=== PATIENT | male | born 1965 | race African-American/Black ===

== ENCOUNTER 2017-06-03 14:12 | Emergency (ER) | payer SELFPAY ==
[2017-06-03 14:18] VITALS: BP 124/86
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
== END 2017-06-03 14:33 | disposition home or self-care (01) ==
LOC: ER 14:12
DX: M25.561 Pain in right knee (principal); F17.210 Nicotine dependence, cigarettes, uncomplicated
CPT/HCPCS: 99283

== ENCOUNTER 2017-06-09 08:57 | Emergency (ER) | payer SELFPAY ==
--- NOTE | 2017-06-09 09:50 | ER Document Report ---
ED Extremity Problem, Lower - General Chief Complaint: Knee Pain Stated Complaint: FALL/RIGHT KNEE PAIN Time Seen by Provider: 06/09/17 09:27 TRAVEL OUTSIDE OF THE [place] IN LAST 30 DAYS: No - HPI Notes: 51-year-old male presents with right knee pain after tripping and falling at the hotel 2 days ago. He has moderate severe pain to the right knee with swelling. He uses no anticoagulants. Denies any other injury otherwise. No distal numbness or tingling. No hip pain. He does have some prior knee problems that are nonspecific and is not followed anywhere. - Related Data Allergies/Adverse Reactions: No Known Allergies Allergy (Verified 06/09/17 09:07) Past Medical History - Social History Smoking Status: Current Every Day Smoker Chew tobacco use (# tins/day): No Frequency of alcohol use: None Drug Abuse: Marijuana Family History: None Patient has suicidal ideation: No Patient has homicidal ideation: No Renal/ Medical History: Denies: Hx Peritoneal Dialysis Surgical Hx: Negative - Immunizations Hx Diphtheria, Pertussis, Tetanus Vaccination: Yes Review of Systems - Review of Systems -: Yes All other systems reviewed and negative Physical Exam - Vital signs Vitals: Temp Pulse Resp BP Pulse Ox 97.7 F 80 16 129/84 H 99 06/09/17 09:08 06/09/17 09:08 06/09/17 09:08 06/09/17 09:08 06/09/17 09:08 - Notes Notes: PHYSICAL EXAMINATION: GENERAL: VS as per nursing doc. Well-appearing, well-nourished no acute distress. HEAD: Atraumatic, normocephalic. EYES: Anicteric without conjunctival injection. ENT: Normal to inspection, moist mucous membranes. NECK: Supple with grossly normal range of motion. LUNGS: Normal respiratory excursion without distress. Clear to auscultation HEART: Regular rate and rhythm. Cap refill < 3 seconds. ABDOMEN: Normal to inspection. EXTREMITIES: No edema. Patient has a large right knee effusion with ballottement. There is no redness and no excessive warmth. Tender diffusely along the joint line particularly at the infrapatellar region. He does have painful but normal extension with his foot off the bed. There appears to be some laxity with ACL testing but there are ligamentous endpoints noted. Neurovascularly intact distally. NEUROLOGICAL: Grossly normal with symmetrical movements. PSYCH: Normal mood, normal affect. SKIN: Warm, dry. Course - Re-evaluation Re-evalutation: 06/09/17 12:08 Reviewed findings with the patient. He appears to have an old tibial plateau injury. I suspect he has ligamentous injury at this point so he will require orthopedic follow-up which I have given him. He will ice and elevate and use crutches and a knee immobilizer to stay off. - Vital Signs Vital signs: Temp Pulse Resp BP Pulse Ox 97.7 F 80 16 129/84 H 99 06/09/17 09:08 06/09/17 09:08 06/09/17 09:08 06/09/17 09:08 06/09/17 09:08 - Diagnostic Test Radiology reviewed: Image reviewed - Old tibial plateau injury. Nothing acute on CT except for large effusion., Reports reviewed Discharge - Discharge Clinical Impression: Internal derangement of knee, acute Condition: Good Disposition: HOME, SELF-CARE Instructions: Use of Crutches ([facility]), Ice & Elevation ([facility]), Suspected Internal Knee Injury ([facility]), Knee Immobilizing Splint ([facility]), Oral Narcotic Medication ([facility] ) Prescriptions: Acetaminophen with Codeine [Tylenol #3 Tablet] 1 - 2 each PO Q6HP PRN #14 tablet PRN Reason: For Pain Acetaminophen with Codeine [Tylenol #3 Tablet] 1 - 2 each PO Q6HP PRN #14 tablet PRN Reason: For Pain Tramadol HCl [Ultram] 50 mg PO Q6HP PRN #14 tablet PRN Reason: Referrals: KORIN KEN MD [ACTIVE STAFF] - Follow up in 3-5 days
[2017-06-09] MEDS ORDERED: IBUPROFEN 600 MG TABLET PO ONE (09:54)
--- NOTE | 2017-06-09 11:02 | RADIOLOGY REPORT (SQ) ---
EXAM DESCRIPTION: KNEE RIGHT 3 VIEWS COMPLETED DATE/TIME: 06/09/2017 10:16 am REASON FOR STUDY: Trauma with pain COMPARISON: None. NUMBER OF VIEWS: Four views. TECHNIQUE: AP, lateral, and both oblique radiographic images acquired of the right knee. LIMITATIONS: None. FINDINGS: MINERALIZATION: Normal. BONES: Deformity of the lateral tibial plateau and adjacent fibular head. May be old based on radiog raphic appearance. No previous studies. Recommend clinical correlation. No acute fracture line kemal ntified. JOINT: Increasing suprapatellar density on the lateral consists with the joint effusion. Small calci fic density projected over the medial aspect of the lateral joint compartment that may represent a lo ose body. SOFT TISSUES: No soft tissue swelling. No radio-opaque foreign body. OTHER: No other significant finding. IMPRESSION: Joint effusion. Deformity and depression of the lateral tibial plateau and adjacent fib ular head that may be old based on radiographic appearance. Recommend clinical correlation. No acut e fracture line identified. CT recommended if suspicious of an occult injury particular at the level of old injury. TECHNICAL DOCUMENTATION: JOB ID: [id number] [employer]- All Rights Reserved
--- NOTE | 2017-06-09 11:57 | RADIOLOGY REPORT (SQ) ---
EXAM DESCRIPTION: CT RT LOWER EXTREMITY WITHOUT COMPLETED DATE/TIME: 06/09/2017 11:19 am REASON FOR STUDY: Eval tibial plateau COMPARISON: X-ray dated 06/09/2017. TECHNIQUE: Axial imaging performed through the right knee with reformatted coronal and sagittal imag ing windowed for bone and soft tissues. Images saved to PACS. 3D IMAGING: Were 3D images as MIP, SSD, or volume rendering performed at the work station? No. All CT scanners at this facility use dose modulation, iterative reconstruction, and/or weight based d osing when appropriate to reduce radiation dose to as low as reasonably achievable (ALARA). [facility]: Dose Right [facility]: CareDose [facility]: Dose Right [facility]: Teradose 4D [facility]: [employer] LIMITATIONS: None. RADIATION DOSE: Up-to-date CT equipment and radiation dose reduction techniques were employed. CTDIv ol: 4.1 mGy. DLP: 101 mGy-cm. mGy. FINDINGS: SOFT TISSUES: Large joint effusion. BONES: No acute fracture visualized. Deformity of the tibial plateau secondary to old trauma. Old d eformity of the fibular head with degenerative changes at the articulation with the proximal tibia. Medial joint space narrowing. MINERALIZATION: Normal. OTHER: No other significant finding. IMPRESSION: CHRONIC DEGENERATIVE CHANGES. OLD POSTTRAUMATIC CHANGES OF THE TIBIAL PLATEAU. NO ACUT E BONY FINDINGS. LARGE JOINT EFFUSION. TECHNICAL DOCUMENTATION: JOB ID: [id number] Quality ID # [id number]: Final reports with documentation of one or more dose reduction techniques (e.g., Au tomated exposure control, adjustment of the mA and/or kV according to patient size, use of iterative reconstruction technique) 2010 [email or web address]- All Rights Reserved
[2017-06-09 12:27] VITALS: BP 129/88
== END 2017-06-09 12:27 | disposition home or self-care (01) ==
LOC: ER 08:57
DX: M23.91 Unspecified internal derangement of right knee (principal); W01.0XXA Fall on same level from slipping, tripping and stumbling without subsequent striking against object, initial encounter; F17.200 Nicotine dependence, unspecified, uncomplicated
CPT/HCPCS: 99284; 73562; 73700; L1830

== ENCOUNTER 2017-11-21 03:14 | Emergency (ER) | payer SELFPAY ==
[2017-11-21 03:21] VITALS: BP 120/69
[2017-11-21] MEDS ORDERED: DIPH/PERTUSS(ACELL)/TETANUS VAC/PF 0.5 ML SYR (>=10YO) IM ONE (03:30)
[2017-11-21] MEDS ORDERED: LIDOCAINE 1% INJ-PF (10 MG/ML) 30 ML SDV INJ ONE (03:31)
--- NOTE | 2017-11-21 03:36 | ER Document Report ---
HPI - HPI Pain Level: 3 Notes: Patient is a 52-year-old male who presents to the ED complaining of a laceration to his left anterior index finger prior to arrival. Patient thinks it may have been glass, but is not sure exactly what he cut his finger on. Patient states that he has been drinking some alcohol tonight as well. He is not sure of his last tetanus. Patient's son brought him to the emergency department and will be picking him up. Patient states that he is still able to move his finger without any difficulties, but cannot stop the bleeding. He has no other concerns or complaints at this time. Denies any drug allergies to antibiotics. Patient has a h/o of HTN, but denies any other significant past medical history. No blood thinners. Denies any headache, fever, head injury, neck pain, changes in vision/speech/mentation/hearing, URI, sore throat, chest pain, palpitations, syncope, cough, shortness of breath, wheeze, dyspnea, abdominal pain, nausea/vomiting/diarrhea, urinary retention, dysuria, hematuria , numbness/tingling, muscle paralysis/weakness, or rash. - ROS Systems Reviewed and Negative: Yes All other systems reviewed and negative Past Medical History - Social History Smoking Status: Current Every Day Smoker Family History: None Renal/ Medical History: Denies: Hx Peritoneal Dialysis - Immunizations Hx Diphtheria, Pertussis, Tetanus Vaccination: Yes Vertical Provider Document - CONSTITUTIONAL Agree With Documented VS: Yes Notes: PHYSICAL EXAMINATION: GENERAL: Well-appearing, well-nourished and in no acute distress. LUNGS: Breath sounds clear to auscultation bilaterally and equal. No wheezes rales or rhonchi. HEART: Regular rate and rhythm without murmurs, rubs, gallops. Musculoskeletal: Left index finger: FROM to passive/active. Strength 5+/5. N/V intact distal. No obvious foreign body. Extremities: No cyanosis, clubbing, or edema b/l. Peripheral pulses 2+. Capillary refill less than 3 seconds. NEUROLOGICAL: Normal speech, normal gait. Normal sensory, motor exams PSYCH: Normal mood, normal affect. SKIN: left index finger: superficial irregular 2.5cm laceration noted to the anterior prox digit. - INFECTION CONTROL TRAVEL OUTSIDE OF THE [place] IN LAST 30 DAYS: No - RESPIRATORY O2 Sat by Pulse Oximetry: 97 Course - Re-evaluation Re-evalutation: 11/21/17 04:15 Patient is an afebrile, well-hydrated, 50-year-old male who presents to the ED with finger laceration to the left index. Vitals are stable. PE is otherwise unremarkable for any neurovascular compromise, obvious tendon/ligament rupture, obvious fracture/dislocation, obvious retained foreign body. X-ray was unremarkable for any acute pathology. Pt eloped after his XR. Basic wound dressing was applied by the nurse for his XR, but wound had not yet been thoroughly irrigated/cleansed prior to elopement. Tdap could not be given as pt eloped nor lac repair. Pt did not get his antibiotic either due to eloping. - Vital Signs Vital signs: Temp Pulse Resp BP Pulse Ox 98.4 F 90 18 120/69 97 11/21/17 03:19 11/21/17 03:19 11/21/17 03:19 11/21/17 03:19 11/21/17 03:19 Discharge - Discharge Clinical Impression: Finger laceration Qualifiers: Encounter type: initial encounter Finger: index finger Damage to nail status: without damage Foreign body presence: without foreign body Laterality: left Qualified Code(s): S61.211A - Laceration without foreign body of left index finger without damage to nail, initial encounter Condition: Stable Disposition: ELOPED Prescriptions: Cephalexin Monohydrate [Keflex 500 mg Capsule] 500 mg PO TID #30 capsule Referrals: [facility] [Provider Group] - Follow up as needed
--- NOTE | 2017-11-21 04:13 | RADIOLOGY REPORT (SQ) ---
EXAM DESCRIPTION: HAND LEFT 3 VIEWS CLINICAL HISTORY: 52 years, Male, left antior 2nd digit laceration COMPARISON: None. NUMBER OF VIEWS: 3 Findings: Fusion and deformity at the left second proximal interphalangeal joint consistent with history of prior injury. Mild swelling/laceration of the left second digit. No radiopaque foreign body. Bones, joints, and soft tissues of the left hand appear otherwise intact. IMPRESSION: Swelling.
== END 2017-11-21 03:50 | disposition left against medical advice (07) ==
LOC: ER 03:14
DX: S61.211A Laceration without foreign body of left index finger without damage to nail, initial encounter (principal); W45.8XXA Other foreign body or object entering through skin, initial encounter; I10 Essential (primary) hypertension; F17.200 Nicotine dependence, unspecified, uncomplicated; Z53.20 Procedure and treatment not carried out because of patient's decision for unspecified reasons
CPT/HCPCS: 99281

== ENCOUNTER 2017-11-21 04:56 | Emergency (ER) | payer SELFPAY ==
[2017-11-21] MEDS ORDERED: DIPH/PERTUSS(ACELL)/TETANUS VAC/PF 0.5 ML SYR (>=10YO) IM ONE (05:35)
[2017-11-21] MEDS ORDERED: LIDOCAINE 1% INJ-PF (10 MG/ML) 30 ML SDV INJ ONE (05:36)
--- NOTE | 2017-11-21 05:37 | ER Document Report ---
HPI - HPI Pain Level: 3 Notes: Patient is a 52-year-old male who presents to the ED complaining of a laceration to his left anterior index finger prior to arrival. Patient thinks it may have been glass, but is not sure exactly what he cut his finger on. Patient states that he has been drinking some alcohol tonight as well. He is not sure of his last tetanus. Patient's son brought him to the emergency department and will be picking him up. Patient states that he is still able to move his finger without any difficulties, but cannot stop the bleeding. He has no other concerns or complaints at this time. Denies any drug allergies to antibiotics. Patient has a h/o of HTN, but denies any other significant past medical history. No blood thinners. Denies any headache, fever, head injury, neck pain, changes in vision/speech/mentation/hearing, URI, sore throat, chest pain, palpitations, syncope, cough, shortness of breath, wheeze, dyspnea, abdominal pain, nausea/vomiting/diarrhea, urinary retention, dysuria, hematuria , numbness/tingling, muscle paralysis/weakness, or rash. Pt eloped about 1 hour ago and has returned. See prev note as well. - ROS Systems Reviewed and Negative: Yes All other systems reviewed and negative Past Medical History - Social History Smoking Status: Unknown if Ever Smoked Family History: None Patient has suicidal ideation: No Patient has homicidal ideation: No - Past Medical History Cardiac Medical History: Reports: Hx Hypertension Renal/ Medical History: Denies: Hx Peritoneal Dialysis - Immunizations Hx Diphtheria, Pertussis, Tetanus Vaccination: Yes Vertical Provider Document - CONSTITUTIONAL Agree With Documented VS: Yes Notes: PHYSICAL EXAMINATION: GENERAL: Well-appearing, well-nourished and in no acute distress. LUNGS: Breath sounds clear to auscultation bilaterally and equal. No wheezes rales or rhonchi. HEART: Regular rate and rhythm without murmurs, rubs, gallops. Musculoskeletal: Left index finger: FROM to passive/active. Strength 5+/5. N/V intact distal. No obvious foreign body. Extremities: No cyanosis, clubbing, or edema b/l. Peripheral pulses 2+. Capillary refill less than 3 seconds. NEUROLOGICAL: Normal speech, normal gait. Normal sensory, motor exams PSYCH: Normal mood, normal affect. SKIN: left index finger: superficial irregular 2.5cm laceration noted to the anterior prox digit. - INFECTION CONTROL TRAVEL OUTSIDE OF THE [place] IN LAST 30 DAYS: No Course - Re-evaluation Re-evalutation: 11/21/17 06:35 Patient is an afebrile, well-hydrated, 50-year-old male who presents to the ED with finger laceration to the left index. Vitals are stable. PE is otherwise unremarkable for any neurovascular compromise, obvious tendon/ligament rupture, obvious fracture/dislocation, obvious retained foreign body. X-ray was unremarkable for any acute pathology. Wound was thoroughly irrigated and cleansed. Wound edges were approximated appropriately utilizing 7 simple interrupted sutures. Wound dressing was placed in a splint placed as well. Wound instructions reviewed. Patient tolerated procedure well without any complications. Tdap given today. I will send him home with a prescription for Keflex as prophylaxis. Recheck with your PCM in 2-3 days. Return to the ED with any worsening/concerning symptoms otherwise as reviewed in discharge. Patient is in agreement. Procedures - Laceration/Wound Repair Left 2nd digit Time completed: 06:30 Wound length (cm): 2.5 Wound's Depth, Shape: Superficial, Irregular Laceration pre-procedure: Sterile PPE donned, Sterile drapes applied, Other - chlorhexadine Anesthetic type: 1% Lidocaine Volume Anesthetic (mLs): 10 Wound explored: Clean, No foreign body removed Irrigated w/ Saline (mLs): 90 Wound Debrided: Minimal Wound Repaired With: Sutures Suture Size/Type: 5:0, Nylon Number of Sutures: 7 Layer Closure?: No Post-procedure wound care: Sterile dressing applied, Splint applied Post-procedure NV exam normal: Yes Complications: No Discharge - Discharge Clinical Impression: Finger laceration Qualifiers: Encounter type: initial encounter Finger: index finger Damage to nail status: without damage Foreign body presence: without foreign body Laterality: left Qualified Code(s): S61.211A - Laceration without foreign body of left index finger without damage to nail, initial encounter Condition: Stable Disposition: HOME, SELF-CARE Instructions: Antibiotic Ointment Protection ([facility]), Laceration Care ([facility]), Prophylactic Antibiotic ([facility]), Soap Cleansing ([facility]), Tetanus Immunization Given ([facility]) Additional Instructions: Do not shower or bathe for 24 hours. After 24 hours you may shower but no submersion of the wound under water. Keep the original dressing on the wound for 24 hours unless the drainage soaks through. Change the dressing daily thereafter and keep the knots of the suture material clean from any dried discharge. You may leave the wound open to the air once there is no more discharge. Return to the ED and/or your PCM in 2-3 days for a recheck. Monitor for any signs of worsening pain or redness, purulent drainage, streaks, and/or fever. Return to the ED if noticing any of the above symptoms or as needed. Take medications as directed. Your sutures will need to be removed in 10 days. Prescriptions: Cephalexin Monohydrate [Keflex 500 mg Capsule] 500 mg PO TID #30 capsule Forms: Smoking Cessation Education Referrals: [facility] [Provider Group] - Follow up as needed
[2017-11-21 05:48] VITALS: BP 127/92
== END 2017-11-21 06:45 | disposition home or self-care (01) ==
LOC: ER 04:56
DX: S61.211A Laceration without foreign body of left index finger without damage to nail, initial encounter (principal); W45.8XXA Other foreign body or object entering through skin, initial encounter; I10 Essential (primary) hypertension
CPT/HCPCS: 99283; 90471; 90715; 12001; J3490

== ENCOUNTER 2020-08-15 08:18 | Emergency (ER) | payer SELFPAY ==
[2020-08-15 08:25] VITALS: BP 121/82
[2020-08-15] MEDS ORDERED: OXYCODONE-ACETAMINOPHEN 5-325 MG TABLET PO ONE (09:37)
[2020-08-15] MEDS ORDERED: ONDANSETRON 4 MG TAB.RAPDIS PO ONE (09:37)
--- NOTE | 2020-08-15 09:45 | ER Document Report ---
Entered by WENDI SERRANO SCRIBE 08/15/20 0918 Acting as scribe for:COLE STUBBS MD ED Extremity Problem, Lower - General Stated Complaint: FALL/ RIGHT FOOT/ANKLE PAIN Time Seen by Provider: 08/15/20 09:15 Mode of Arrival: Ambulatory Information source: Patient Notes: This 55 year old male patient presents to the ED today for evaluation of right ankle pain that started after his leg got tangled in a tree that fell down while he was cutting trees yesterday. Patient states that that pain was not as bad initially, but became worse over time. He notes icing his ankle last night with mild relief, but reports the pain got worse when he moved his ankle. TRAVEL OUTSIDE OF THE [place] IN LAST 30 DAYS: No - Related Data Allergies/Adverse Reactions: codeine Allergy (Verified 11/21/17 06:17) Past Medical History - General Information source: Patient, [facility] Records - Social History Smoking Status: Current Every Day Smoker Cigarette use (# per day): Yes - 0.5 ppd Chew tobacco use (# tins/day): No Smoking Education Provided: No Frequency of alcohol use: Occasional Drug Abuse: Marijuana Lives with: Spouse/Significant other Family History: Reviewed & Not Pertinent Patient has suicidal ideation: No Patient has homicidal ideation: No - Past Medical History Cardiac Medical History: Reports: Hx Hypertension Past Surgical History: Reports: None - Immunizations Hx Diphtheria, Pertussis, Tetanus Vaccination: Yes Review of Systems - Review of Systems Constitutional: No symptoms reported EENT: No symptoms reported Cardiovascular: No symptoms reported Respiratory: No symptoms reported Gastrointestinal: No symptoms reported Genitourinary: No symptoms reported Male Genitourinary: No symptoms reported Musculoskeletal: See HPI, Joint pain Skin: No symptoms reported Hematologic/Lymphatic: No symptoms reported Neurological/Psychological: No symptoms reported -: Yes All other systems reviewed and negative Physical Exam - Vital signs Vitals: Temp Pulse Resp BP Pulse Ox 98.1 F 93 16 121/82 98 08/15/20 08:25 08/15/20 08:25 08/15/20 08:25 08/15/20 08:25 08/15/20 08:25 - General General appearance: Appears well, Alert In distress: None - HEENT Head: Normocephalic, Atraumatic Eyes: Normal Pupils: PERRL - Respiratory Respiratory status: No respiratory distress Chest status: Nontender Breath sounds: Normal Chest palpation: Normal - Cardiovascular Rhythm: Regular Heart sounds: Normal auscultation Murmur: No Friction rub: No Gallop: None auscultated - Abdominal Inspection: Normal Distension: No distension Bowel sounds: Normal Tenderness: Nontender - Abdomen soft Organomegaly: No organomegaly - Back Back: Normal, Nontender - Extremities General upper extremity: Normal inspection Ankle: Tender, Edema - Right ankle is grossly swollen and tender to palpation Foot: Tender - Most tender in the right dorsal foot around the base of the 3rd and 4th metatarsals, Edema - Neurological Neuro grossly intact: Yes Orientation: AAOx4 Vendor Coma Scale Eye Opening: Spontaneous [place] Coma Scale Verbal: Oriented [place] Coma Scale Motor: Obeys Commands [place] Coma Scale Total: 15 - Psychological Associated symptoms: Normal affect, Normal mood - Skin Skin Temperature: Warm Skin Moisture: Dry Skin Color: Normal Course - Re-evaluation Re-evalutation: 08/15/20 09:37 Patient reports that his codeine allergy with actually manifested as nausea that occurred from Tylenol with codeine prescription he was given in May 2017 when he was seen here for a knee injury. 08/15/20 09:38 - Vital Signs Vital signs: Temp Pulse Resp BP Pulse Ox 98.1 F 93 16 121/82 98 08/15/20 08:25 08/15/20 08:25 08/15/20 08:25 08/15/20 08:25 08/15/20 08:25 - Diagnostic Test Radiology reviewed: Image reviewed, Reports reviewed - Right ankle and foot did not show evidence of fracture. Discharge - Discharge Clinical Impression: Crushing injury of foot and ankle, right Qualifiers: Encounter type: initial encounter Qualified Code(s): S97.01XA - Crushing injury of right ankle, initial encounter Condition: Stable Disposition: HOME, SELF-CARE Additional Instructions: Contusion/Crush Injury: Your injury has resulted in a contusion -- a crushing of the deep tissues. No injury to important structures was detected during the physician's exam. Contusions vary in the amount of pain they cause, and in the length of time required for healing. Typically, the area will become bruised, and will remain painful to touch for two or three weeks. However, most patients are back to working and playing within a few days. After the initial period of rest and cold-packs, your symptoms (together with the doctor's recommendations) will determine how rapidly you can get back to full activity. Usually this means "do what feels okay, but don't do things that hurt." If re-examination was recommended, it's important to follow up as instructed. Call the doctor or return any time if pain increases, if swelling becomes severe, if you develop numbness or weakness in an injured extremity, or if any other alarming symptoms occur. Elevate your right foot all the time. Use the crutches to avoid putting weight on your right foot. Use ice packs on your foot and ankle off and on for the next few days. Take ibuprofen 600 mg every 8 hours for pain. Take the pain medication as prescribed for severe pain that is not relieved with the ice and the ibuprofen. This injury may take 1 to 2 weeks before you are able to return to work. Follow-up with a local primary care provider, or with the [facility] orthopedic doctors if not improving. RETURN TO THE EMERGENCY ROOM IF ANY NEW OR WORSENING SYMPTOMS. Prescriptions: Oxycodone HCl/Acetaminophen [Percocet 5-325 mg Tablet] 1 tab PO ASDIR PRN #12 tablet PRN Reason: I personally performed the services described in the documentation, reviewed and edited the documentation which was dictated to the scribe in my presence, and it accurately records my words and actions.
--- NOTE | 2020-08-15 10:09 | RADIOLOGY REPORT (SQ) ---
EXAM DESCRIPTION: ANKLE RIGHT COMPLETE IMAGES COMPLETED DATE/TIME: 08/15/2020 10:01 am REASON FOR STUDY: Ankle and dorsal foot swelling with pain COMPARISON: None. NUMBER OF VIEWS: Three views. TECHNIQUE: AP, lateral, and oblique radiographic images acquired of the right ankle. LIMITATIONS: None. FINDINGS: MINERALIZATION: Normal. BONES: No acute fracture or dislocation. No worrisome bone lesions. JOINTS: No effusions. SOFT TISSUES: No soft tissue swelling. No foreign body. OTHER: No other significant finding. IMPRESSION: NEGATIVE STUDY OF THE RIGHT ANKLE. NO RADIOGRAPHIC EVIDENCE OF ACUTE INJURY. TECHNICAL DOCUMENTATION: JOB ID: [id number] 2010 [employer]- All Rights Reserved Reading location - IP/workstation name: [email or web address]
--- NOTE | 2020-08-15 10:10 | RADIOLOGY REPORT (SQ) ---
EXAM DESCRIPTION: FOOT RIGHT COMPLETE IMAGES COMPLETED DATE/TIME: 08/15/2020 10:01 am REASON FOR STUDY: Ankle and dorsal foot swelling with pain COMPARISON: None. NUMBER OF VIEWS: Three views. TECHNIQUE: AP, lateral and oblique radiographic images acquired of the right foot. LIMITATIONS: None. FINDINGS: MINERALIZATION: Normal. BONES: No acute fracture dislocation. Cortical erosion versus subchondral cyst at the distal aspect of the 5th proximal phalanx. Mild hallux valgus with soft tissue bunion. JOINTS: No effusions. SOFT TISSUES: No soft tissue swelling. No foreign body. OTHER: No other significant finding. IMPRESSION: 1. No evidence of fracture. 2. Cortical erosion versus subchondral cyst at the distal aspect of the 5th proximal phalanx. TECHNICAL DOCUMENTATION: JOB ID: [id number] 2010 [employer]- All Rights Reserved Reading location - IP/workstation name: [email or web address]
== END 2020-08-15 11:58 | disposition home or self-care (01) ==
LOC: ER 08:18
DX: S97.01XA Crushing injury of right ankle, initial encounter (principal); M79.671 Pain in right foot; M25.571 Pain in right ankle and joints of right foot; M79.89 Other specified soft tissue disorders; W18.30XA Fall on same level, unspecified, initial encounter; Y93.H2 Activity, gardening and landscaping; F17.210 Nicotine dependence, cigarettes, uncomplicated; Z88.8 Allergy status to other drugs, medicaments and biological substances; I10 Essential (primary) hypertension
CPT/HCPCS: 99283; 73610; 73630; S0119